=== PATIENT | female | born 1995 | race African-American/Black ===

== ENCOUNTER 2016-11-28 15:48 | Inpatient (IN) | payer OTHER ==
--- NOTE | ~2016-11-28 | DS ---
Unit #: [id number] #: [id number] Patient: CHETAN BOWERS [id number] [facility] [address] [place] [address] [id number] I MR#: [id number] NAME: CHETAN BOWERS ROOM: [facility] Age: 21 Sex: F Admission Date: 11/28/2016 : 1995 Discharge Date: 11/29/2016 Attending Physician: Bart Yadav M.D. Primary Care Physician: Primary Care Physician No DISCHARGE SUMMARY REASON FOR ADMISSION Chetan is a 21-year-old woman who called a suicide hotline when she was upset over multiple psychosocial stressors including stress from 2 young children, one of whom is only 6-days-old, and finances. She had no specific plan or intent, but was admitted to [facility] voluntarily for overnight assessment. DIAGNOSTIC STUDIES LABORATORY RESULTS: Please see hospital chart. HOSPITAL COURSE The patient was admitted overnight and placed on suicide precautions. In the morning of my initial assessment, she was pleasant and cooperative with the examination. After discussion of potential risks and benefits of various treatments, she declined initiation of antidepressant medication, and was willing to undergo psychotherapy in the outpatient setting. She was at very little risk of harm to self or others, and was discharged in stable condition. DISCHARGE DIAGNOSES AXIS I: Adjustment disorder with depressed mood, F43.21. AXIS II: No diagnosis. AXIS III: Obesity 6 days . AXIS IV: AXIS V: DISCHARGE INSTRUCTIONS Follow up with the [facility] for psychotherapy. DISCHARGE MEDICATIONS None. All primary care medications to be continued unchanged. CONDITION AT DISCHARGE Improved. PROGNOSIS Good. DIET AND ACTIVITY Ad meño. Unit #: [id number] #: [id number] Patient: CHETAN BOWERS Dictated by... Bart Yadav M.D. [facility]/antoninol TD: 11/29/2016 15:12 JOB #: [id number] DISCHARGE SUMMARY Page 1 of 1 X Bart Yadav MD X DISCHARGE SUMMARY
--- NOTE | ~2016-11-28 | HP ---
Unit #: [id number] #: [id number] Patient: CHETAN BOWERS [id number] [facility] [address] [place] [address] [id number] I MR#: [id number] NAME: CHTEAN BOWERS ROOM: [facility] Age: 21 Sex: F Admission Date: 11/28/2016 : 1995 Attending Physician: Bart Yadav M.D. Admitting Physician: Bart Yadav M.D. Primary Care Physician: Primary Care Physician No HISTORY AND PHYSICAL Chetan is a 21 year old who was admitted and discharged within the first 24 hours. She was not seen for an H and P. Dictated by... Danette Riley P.A.-C. for Eddei Ramirez/darlin TD: 11/29/2016 20:49 JOB #: [id number] HISTORY AND PHYSICAL Page 1 of 1 X Danette Riley X HISTORY AND PHYSICAL
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
[2016-11-29 09:43] LABS: BASOPHIL# 0.1 X10e3 (0-0.3); BASOPHIL% 0.7 % (0-2.5); EOSINOPHIL# 0.3 X10e3 (0-0.7); EOSINOPHIL% 3.9 % (0.0-7.0); HEMOGLOBIN 10.5 gm/dL (12.0-16.0); LYMPHOCYTE# 2.4 X10e3 (1.0-3.5); LYMPHOCYTE% 28.8 % (17.0-45.0); MEAN CELL VOLUME 79.7 FL (83-96); MEAN CORPUSCULAR HEMOGLOBIN 26.2 PG (28-34); MEAN CORPUSCULAR HGB CONC 32.8 g/dL (30-36); MEAN PLATELET VOLUME 7.8 FL (6.5-11.5); MONOCYTE# 0.5 X10e3 (0-1.0); NEUTROPHIL% 60.6 % (40-75); PLATELET COUNT 465 X10e3 (140-420); RED BLOOD COUNT 4.02 X10e (3.90-5.30); RED CELL DISTRIBUTION WIDTH 15.7 % (11.0-15.5); WHITE BLOOD COUNT 8.3 X10e3 (4.0-10.5)
[2016-11-29 09:47] LABS: DIFF IND NO
[2016-11-29 10:24] LABS: ALBUMIN SERUM 2.9 g/dL (3.5-5.0); BILIRUBIN,TOTAL 0.6 mg/dL (0.2-2.0); CALCIUM SERUM 8.9 mg/dL (8.4-10.2); CREATININE SERUM 0.5 mg/dL (0.6-1.4); GLOM FILT RATE Estimated 160.4 mL/min (>60); POTASSIUM 4.4 mmol/L (3.5-5.1); PROTEIN TOTAL SERUM 6.8 g/dL (6.0-8.3)
== END 2016-11-29 13:00 | disposition home or self-care (01) | DRG 776 ==
LOC: P2L 17:43
PROVIDERS: Psychiatry & Neurology Psychiatry
DX: O99.345 Other mental disorders complicating the puerperium (principal); F32.3 Major depressive disorder, single episode, severe with psychotic features; Z68.44 Body mass index [BMI] 60.0-69.9, adult; F43.21 Adjustment disorder with depressed mood; E66.9 Obesity, unspecified
CPT/HCPCS: 80053; 84703; 85025